=== PATIENT | female | born 1965 | race Caucasian/White ===

== ENCOUNTER 2020-05-15 15:25 | Outpatient (CLI) | payer OTHER, SELFPAY ==
--- NOTE | ~2020-05-15 | MR_ITS ---
EXAMINATION: MR pituitary wo/w con DATE: 05/15/2020 16:45 INDICATION: Benign neoplasm of pituitary gland. TECHNIQUE: Magnetic resonance imaging (MRI) of the brain and brainstem was performed without and with 18 mL MultiHance intravenous contrast. Whole-brain sequences included sagittal T1-weighted FSE, axia l diffusion-weighted FS EPI, axial T2*-weighted GRE, axial T2-weighted FLAIR Propeller, and axial T2- weighted Propeller. Small eyloz-zu-wxio sequences included sagittal and coronal T1-weighted FSE cente red at the pituitary. Postcontrast sequences included small trdbd-js-xnvm coronal T1-weighted FSE in a time course and sagittal T1-weighted FSE and whole-brain axial T1-weighted FSE. Apparent diffusion coefficient (ADC) maps were created. COMPARISON: Brain MRI 11/05/2018 FINDINGS: The pituitary is normal in size with height of 6 mm and concave superior margin. There is a 6 mm isoenhancing mass in the pituitary on the left. The infundibulum is at midline. There are scatt ered areas of nonspecific increased T2-weighted signal intensity in the cerebral white matter, which is within normal limits for the patient's age. There is no intracranial hemorrhage or acute ischemic infarct. The ventricles are normal in size. The paranasal sinuses are clear. The orbits are normal. T he mastoid air cells are normal. IMPRESSION: 1. Stable 6 mm pituitary mass, consistent with a microadenoma. Reviewed, dictated and finalized at location B.
[2020-05-15 16:05] LABS: Estimated Glomerular Filt Rate > 60
== END 2020-05-15 15:26 | disposition home or self-care (01) ==
LOC: ANHIMG 15:28
PROVIDERS: PCP Internal Medicine; Visit Provider Internal Medicine Endocrinology, Diabetes & Metabolism
DX: D35.2 Benign neoplasm of pituitary gland (principal)
CPT/HCPCS: 36415; 70553; A9577

== ENCOUNTER 2020-08-02 13:55 | Emergency (ER) | payer OTHER, SELFPAY ==
--- NOTE | 2020-08-02 13:59 | ED.URI ---
HPI - URI/Sore Throat General Chief Complaint: Upper Respiratory Infection Stated Complaint: SORE THROAT Time Seen by Provider: 08/02/20 14:04 Source: patient and RN notes reviewed Mode of arrival: ambulatory Limitations: no limitations History of Present Illness HPI Narrative: 55-year-old female presents with concern for sore throat that started yesterday. Reports a coworker tested positive for strep throat. She reports mild nasal congestion, drainage. Denies cough, fever, shortness of breath, chills, sweats. Denies body aches. Denies any mqcx-pqh-awtsflb medications for her symptoms. MD elicited complaint: sore throat Related Data Home Medications Medication Instructions Recorded Confirmed blood sugar diagnostic #10 each 08/27/19 03/01/20 lancets 28 gauge #25 each 08/27/19 03/01/20 Allergies Allergy/AdvReac Type Severity Reaction Status Date / Time metformin Allergy Unknown Vomiting Verified 11/30/19 11:40 Sulfa (Sulfonamide Allergy Unknown Hives Verified 08/27/19 09:41 Antibiotics) Review of Systems Review of Systems: Narrative: CONSTITUTIONAL: Denies malaise, chills, sweats, or fever. EYES: Denies visual changes, redness, or discharge. ENT: Reports rhinorrhea, congestion, sore throat. Denies sinus pain, otalgia CARDIOVASCULAR: Denies chest pain, palpitations, or edema. RESPIRATORY: Denies cough or dyspnea. GASTROINTESTINAL: Denies abdominal pain, nausea, vomiting, diarrhea SKIN: Denies rash or itching. MUSCULOSKELETAL: Denies myalgia. NEUROLOGIC: Denies headache. All systems reviewed & are unremarkable except as noted in HPI and below PMFSH Past Medical History Medical History (Updated 08/02/20 @ 14:18 by Adelina Guido NP) Anxiety Breast tumor Right @ age 12 Diarrhea GI disease H. 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 confucianist 2012 Hx of tonsillectomy Age 19 Family History Family History (Updated 08/27/19 @ 09:43 by Celena Woods CMA) Father Family history of alcoholism, Onset Age: 40 Mother Anemia Sibling Throat cancer Other Hypertension Social History Social History (Updated 08/27/19 @ 09:44 by Celena Woods, [facility]) Smoking packs per day: 1 Smoking cigarettes per day: 20.0 Smoking status: Current every day smoker Tobacco type: cigarettes Second hand tobacco smoke exposure: Yes Alcohol intake: never Substance use: never Comments At time of signature, agree with nursing past medical, surgical, social and family history. There is no relevant family history pertinent to the presenting complaint Exam Narrative: Exam Narrative: GENERAL: Well-appearing, well-nourished, and in no acute distress. HEAD: Normocephalic EYES: PERRLA, conjunctivae clear ENT: Nares clear, turbinates erythematous, clear discharge. Mucous membranes moist. TM pearly kelly with sharp light reflex bilaterally; no tragal tenderness. Oropharynx not erythematous without lesions. Tonsils not enlarged and without exudate, no drooling, no hoarseness, no trismus, uvula midline. NECK: Supple. No lymphadenopathy CHEST: Clear to auscultation, breath sounds equal. No wheezing, rhonchi, rales, or stridor. No respiratory distress, speaks in full sentences. HEART: Regular rate and rhythm. No murmur heard. SKIN: Warm, dry, no rash. NEURO: Alert and oriented x3. PSYCH: Normal mood and affect Course Course Emergency Course: Patient is aware of diagnosis, understands and agrees to treatment plan. Anticipatory guidance given. Patient agrees to follow-up as directed and is aware of reasons to seek care at the emergency department. Portions of this record may have been created with voice recognition software Vital Signs Vital signs: Vital Sig
[2020-08-02 14:01] VITALS: BP 153/66; PULSE 94; RESP 12; TEMP 36.1; O2SAT 98
== END 2020-08-02 14:24 | disposition home or self-care (01) ==
PROVIDERS: Emergency Provider Nurse Practitioner; PCP Internal Medicine
DX: J06.9 Acute upper respiratory infection, unspecified (principal); F17.210 Nicotine dependence, cigarettes, uncomplicated; Z85.828 Personal history of other malignant neoplasm of skin; E11.9 Type 2 diabetes mellitus without complications
CPT/HCPCS: 87081; 87880; 99213; G0463

== ENCOUNTER → 2020-12-05 09:03 | Outpatient (CLI) | payer OTHER, SELFPAY ==
[2020-12-05 11:24] LABS: Influenza Control Positive
[2020-12-05 23:33] LABS: SARS-CoV-2 RNA PCR Negative
== END ==
PROVIDERS: PCP Internal Medicine; Visit Provider Nurse Practitioner
DX: Z20.822 Contact with and (suspected) exposure to COVID-19 (principal); R50.9 Fever, unspecified
CPT/HCPCS: 87804; C9803; U0003; U0005

== ENCOUNTER 2021-06-14 12:30 | Outpatient (RCR) | payer OTHER, SELFPAY ==
[2021-06-14 12:38] VITALS: BMI 30.5
[2021-06-14 12:43] VITALS: BMI 30.5
== END 2021-08-21 15:36 | disposition home or self-care (01) ==
LOC: ANHDMC 12:30
PROVIDERS: PCP Internal Medicine; Visit Provider Nurse Practitioner
DX: E11.9 Type 2 diabetes mellitus without complications (principal); Z71.89 Other specified counseling; Z71.3 Dietary counseling and surveillance
CPT/HCPCS: 97802; G0108

== ENCOUNTER 2022-03-28 08:00 | Outpatient (CLI) | payer OTHER, SELFPAY ==
--- NOTE | ~2022-03-28 | MR_ITS ---
EXAMINATION: MR brain/brain stem wo/w con DATE: 03/28/2022 08:48 INDICATION: Pituitary adenoma. TECHNIQUE: Magnetic resonance imaging (MRI) of the brain and brainstem was performed without and with 18 mL MultiHance intravenous contrast. COMPARISON: Brain MRI 05/15/2020 FINDINGS: In the left side of the sella, there is a 7 x 5 mm mass that is isoenhancing to normal pitu itary. The infundibulum is at midline. There is no intracranial hemorrhage or acute ischemic infarct. There are scattered areas of nonspecific increased T2-weighted signal intensity in the cerebral whit e matter, which is within normal limits for the patient's age. The ventricles are normal in size. The re is mild mucosal thickening in the ethmoid sinuses. The mastoid air cells are normal. The orbits ar e normal. IMPRESSION: 1. Stable 7 mm pituitary mass, consistent with a microadenoma. Reviewed, dictated and finalized at location A.
== END 2022-03-28 08:01 | disposition home or self-care (01) ==
PROVIDERS: PCP Internal Medicine; Visit Provider Nurse Practitioner
DX: D35.2 Benign neoplasm of pituitary gland (principal)
CPT/HCPCS: 70553; A9577

== ENCOUNTER 2023-01-01 08:34 | Outpatient (CLI) | payer OTHER, SELFPAY ==
[2023-01-01 19:04] LABS: Hemoglobin A1C 7.3 % (<5.7)
[2023-01-01 20:06] LABS: Anion Gap 7 mmol/L (8-16); Blood Urea Nitrogen 15 mg/dL (7-17); Calcium 9.2 mg/dL (8.4-10.2); Carbon Dioxide 25 mmol/L (22-30); Chloride 107 mmol/L (98-107); Estimated Glomerular Filt Rate > 60; Glucose 154 mg/dL (65-110); Potassium 4.1 mmol/L (3.4-5.0); Sodium 139 mmol/L (137-145)
== END 2023-01-01 08:35 | disposition home or self-care (01) ==
LOC: ANHGOSHLAB 08:34
PROVIDERS: PCP Internal Medicine; Visit Provider Nurse Practitioner
DX: E11.9 Type 2 diabetes mellitus without complications (principal)
CPT/HCPCS: 36415; 80048; 83036

== ENCOUNTER 2023-01-08 10:05 | Outpatient (CLI) | payer OTHER, SELFPAY ==
[2023-01-08 18:59] LABS: Rheumatoid Factor < 8.6 IU/ML (<12)
[2023-01-08 19:38] LABS: Erythrocyte Sedimentation Rate 12 mm/hr (0-20)
[2023-01-11 10:42] LABS: ANA Cascade Screen Negative (Negative)
== END 2023-01-08 10:06 | disposition home or self-care (01) ==
LOC: ANHGOSHLAB 10:06
PROVIDERS: PCP Internal Medicine; Visit Provider Nurse Practitioner
DX: M25.50 Pain in unspecified joint (principal)
CPT/HCPCS: 36415; 84443; 85652; 86038; 86430

== ENCOUNTER 2023-04-14 08:52 | Outpatient (CLI) | payer OTHER, SELFPAY ==
[2023-04-14 12:41] LABS: Basophils Absolute Auto 0.1 K/mm3 (0.0-0.1); Basophils Percent Auto 1.2 % (0.2-1.2); Eosinophils Absolute Auto 0.4 K/mm3 (0-0.3); Eosinophils Percent Auto 3.8 % (0-4.4); Hematocrit 44.2 % (37.0-47.0); Hemoglobin 14.6 g/dL (12.0-15.0); Immature Granulocyte Absolute 0.03 K/mm3 (0.00-0.031); Immature Granulocyte Percent A 0.3 % (0-0.5); Lymphocytes Absolute Auto 3.84 K/mm3 (0.9-3.2); Lymphocytes Percent Auto 36.9 % (18.3-44.2); Mean Corpuscular Hemoglobin 31.3 pg (26-34); Mean Corpuscular Volume 94.8 fl (80-100); Mean Platelet Volume 11.2 fl (7.4-10.4); Monocytes Absolute Auto 0.6 K/mm3 (0.1-0.6); Monocytes Percent Auto 5.7 % (2.6-8.5); Neutrophils Absolute Auto 5.4 K/mm3 (1.3-6.7); Neutrophils Percent Auto 52.1 % (45.5-73.1); Platelet Count Result 274 k/mm3 (150-375); Red Blood Count 4.66 M/mm3 (4.2-5.4); Red Cell Distribution Width 12.8 % (11.5-14.5); White Blood Count 10.4 K/mm3 (4.5-10.0)
[2023-04-14 13:10] LABS: Hemoglobin A1C 7.7 % (<5.7)
[2023-04-14 13:18] LABS: Microalbumin Urine Random 23.7 mg/L (0-16.7)
[2023-04-14 13:26] LABS: Creatinine Urine 225.4 mg/dL; MALB Creatinine Ratio 10.5 mg/g (0-30)
[2023-04-16 18:36] LABS: Apolipoprotein B 102 mg/dL (<90)
== END 2023-04-14 08:53 | disposition home or self-care (01) ==
LOC: ANHGOSHLAB 08:53
PROVIDERS: PCP Internal Medicine; Visit Provider Internal Medicine
DX: E11.65 Type 2 diabetes mellitus with hyperglycemia (principal); E78.5 Hyperlipidemia, unspecified
CPT/HCPCS: 36415; 82043; 82172; 83036; 85025

== ENCOUNTER 2023-04-16 10:25 | Outpatient (CLI) | payer OTHER, SELFPAY ==
[2023-04-16 18:55] LABS: Free T4 Free Thyroxine 1.36 ng/mL (0.78-2.19)
[2023-04-19 05:59] LABS: Triiodothyronine T3 Free 3.4 pg/mL (2.3-4.2)
== END 2023-04-16 10:26 | disposition home or self-care (01) ==
LOC: ANHGOSHLAB 10:26
PROVIDERS: PCP Internal Medicine; Visit Provider Nurse Practitioner
DX: R53.83 Other fatigue (principal)
CPT/HCPCS: 36415; 84439; 84443; 84481

== ENCOUNTER 2023-10-25 17:31 | Emergency (ER) | payer OTHER, SELFPAY ==
[2023-10-25 17:42] VITALS: BP 129/99; PULSE 103; RESP 17; TEMP 36.6; O2SAT 98
--- NOTE | 2023-10-25 17:52 | ED.GENADULT ---
HPI - General Adult General Chief complaint: Upper Respiratory Infection Stated complaint: Chest congestion;Vertigo Source: patient, RN notes reviewed and old records reviewed Mode of arrival: ambulatory Limitations: no limitations History of Present Illness HPI narrative: 58-year-old female presents to [facility] with complaints productive cough, chest congestion for approximately 2 weeks. Patient taking uvtm-lid-udzkwuq Mucinex with no relief. Patient states that yesterday while driving grandson to school started having vertigo. Patient states vertigo has resolved but now has ear pressure, sinus congestion, sinus pain. MD complaint: Cough, congestion Onset (ago): week(s) (2) Related Data Allergies Allergy/AdvReac Type Severity Reaction Status Date / Time metformin Allergy Unknown Vomiting Verified 10/25/23 17:53 Sulfa (Sulfonamide Allergy Unknown Hives Verified 10/25/23 17:53 Antibiotics) amoxicillin [From Augmentin] Allergy Violently Verified 10/25/23 17:53 Ill clavulanic acid Allergy Violently Verified 10/25/23 17:53 [From Augmentin] Ill Review of Systems Constitutional: Constitutional: Reports no additional constitutional complaints, Denies body ache(s), Denies chills, Denies fatigue, Denies fever(s) and Reports headache(s) Eyes: Eyes: Reports no additional eye complaints and Denies blurry vision ENT: Reports system reviewed and no additional complaints, except as documented, Reports vertigo, Denies dizziness, Denies ear discharge, Reports otalgia, Denies facial pain, Denies headache(s), Reports nasal congestion, Reports nasal discharge, Reports sinus pain, Reports sinus pressure and Denies sore throat Cardiovascular: Cardiovascular: Reports no additional cardiovascular complaints, Denies chest pain, Denies chest pain at rest, Denies rapid heart rate and Denies dyspnea Respiratory: Respiratory: Reports no additional respiratory complaints, Reports chest congestion, Reports cough, Denies pain on inspiration, Denies pain with cough and Denies dyspnea Gastrointestinal: Gastrointestinal: Denies abdominal pain, Denies diarrhea, Denies nausea and Denies vomiting Integumentary/Breasts: Skin/Breast: Denies rash Neurologic: Reports system reviewed and no additional complaints, except as documented, Denies vertigo, Denies dizziness and Denies headache(s) Endocrine: Endocrine: Denies fatigue PMFSH Past Medical History Medical History Anxiety Benign neoplasm of pituitary gland Breast tumor Right @ age 12 Diarrhea GI disease H. pylori infection Hemorrhoids Kidney stones Leukocytosis Mass of left wrist Skin cancer Tennis elbow Type 2 diabetes mellitus Surgical History Surgical History History of surgical removal of squamous cell carcinoma of skin of left muslim 2013 Hx of tonsillectomy Age 19 Family History Family History Father Family history of alcoholism, Onset Age: 40 Mother Anemia Sibling Throat cancer Other Hypertension Social History Social History Social History: Caffeine-Coffee/Tea Smoking packs per day: 1 Smoking cigarettes per day: 20.0 Years smoked: 40 Smoking pack-years: 40.00 Smoking status: Current every day smoker Tobacco type: cigarettes Second hand tobacco smoke exposure: Yes Alcohol intake: never Substance use: never Lack of Transportation: No Lack of Food: Never True Current Housing: I Have Housing Concerned About Future Housing: No Difficulty Paying Gas/Electric Bills: No Difficulty Paying for Meds: No Currently Unemployed: No Education: Bachelor's Degree Difficulty w/ Childcare or Family Care: No Spiritual care concerns: No Comments At the time of my signature, I reviewed and ag
== END 2023-10-25 18:08 | disposition home or self-care (01) ==
PROVIDERS: Emergency Provider Registered Nurse; PCP Internal Medicine
DX: J40 Bronchitis, not specified as acute or chronic (principal); H65.02 Acute serous otitis media, left ear; Z20.822 Contact with and (suspected) exposure to COVID-19; F17.210 Nicotine dependence, cigarettes, uncomplicated; E11.9 Type 2 diabetes mellitus without complications; F41.9 Anxiety disorder, unspecified; Z85.828 Personal history of other malignant neoplasm of skin
CPT/HCPCS: 87426; 87804; 99213; G0463

== ENCOUNTER 2023-12-09 08:49 | Outpatient (CLI) | payer OTHER, SELFPAY ==
[2023-12-09 13:09] LABS: Basophils Absolute Auto 0.1 K/mm3 (0.0-0.1); Basophils Percent Auto 0.8 % (0.2-1.2); Eosinophils Absolute Auto 0.3 K/mm3 (0-0.3); Eosinophils Percent Auto 2.2 % (0-4.4); Hematocrit 44.9 % (37.0-47.0); Hemoglobin 14.5 g/dL (12.0-15.0); Immature Granulocyte Absolute 0.05 K/mm3 (0.00-0.031); Immature Granulocyte Percent A 0.4 % (0-0.5); Lymphocytes Absolute Auto 3.06 K/mm3 (0.9-3.2); Lymphocytes Percent Auto 23.2 % (18.3-44.2); Mean Corpuscular HGB Conc 32.3 g/dl (32-36); Mean Corpuscular Hemoglobin 31.4 pg (26-34); Mean Corpuscular Volume 97.2 fl (80-100); Mean Platelet Volume 11.3 fl (7.4-10.4); Monocytes Absolute Auto 0.7 K/mm3 (0.1-0.6); Monocytes Percent Auto 5.2 % (2.6-8.5); Neutrophils Percent Auto 68.2 % (45.5-73.1); Platelet Count Result 281 k/mm3 (150-375); Red Blood Count 4.62 M/mm3 (4.2-5.4); Red Cell Distribution Width 13.5 % (11.5-14.5); White Blood Count 13.2 K/mm3 (4.5-10.0)
[2023-12-09 13:17] LABS: Alanine Aminotransferase 22 U/L (6-35); Albumin Level 4.2 g/dL (3.5-5.1); Alkaline Phosphatase 108 U/L (38-126); Anion Gap 6 mmol/L (8-16); Aspartate Amino Transferase 38 U/L (14-36); Bilirubin,Total 0.7 mg/dL (0.2-1.3); Blood Urea Nitrogen 12 mg/dL (7-17); Calcium 9.3 mg/dL (8.4-10.2); Carbon Dioxide 28 mmol/L (22-30); Chloride 108 mmol/L (98-107); Cholesterol 182 mg/dL (0-200); Estimated Glomerular Filt Rate > 60; Glucose 166 mg/dL (65-110); HDL Direct 35 mg/dL; Potassium 3.8 mmol/L (3.4-5.0); Sodium 142 mmol/L (137-145); Triglycerides 143 mg/dL (<150)
[2023-12-09 13:28] LABS: LDL Cholesterol Direct 125 mg/dL
[2023-12-09 13:58] LABS: MALB Creatinine Ratio 110.7 mg/g (0-30)
== END 2023-12-09 08:50 | disposition home or self-care (01) ==
LOC: ANHGOSHLAB 08:50
PROVIDERS: PCP Internal Medicine; Visit Provider Clinical Nurse Specialist
DX: E11.65 Type 2 diabetes mellitus with hyperglycemia (principal); E78.5 Hyperlipidemia, unspecified
CPT/HCPCS: 36415; 80053; 80061; 82043; 83036; 85025

== ENCOUNTER 2024-11-15 08:03 | Outpatient (CLI) | payer OTHER, SELFPAY ==
--- OUTSIDE RECORDS SUMMARY | 2024-11-15 08:09 | XMS_ITS | Referral Summary ---
Author Organization [facility] [address] Address [address] [place] [address] Care Team Providers Care Field Talent Qualification Specialist Name Role Phone Alberto Reilly DO Primary Care Provider +1- [phone] Allergies Active Allergy Reactions Criticality Noted Date Comments Cortisone Anaphylaxis,Hives High 11/19/2018 Sulfa (Sulfonamide Antibiotics) Medications venlafaxine XR (EFFEXOR-XR) 37.5 mg 24 hr capsule 02/18/2022 Active simvastatin (ZOCOR) 10 mg tablet Take 10 mg by mouth daily 03/27/2022 Active Trulicity 0.75 mg/0.5 mL pen injector 02/18/2022 Active azithromycin (ZITHROMAX) 250 mg tablet Take 2 tabs (500 mg) by mouth today, than 1 tab (250 mg) daily for 4 days. 6 tablet 01/20/2023 Active benzonatate (TESSALON) 100 mg capsuleIndicati ons:Cough Take 1 capsule (100 mg total) by mouth 3 (three) times a day as needed for cough 21 capsule 01/20/2023 Active Active Problems Problem Noted Date Diagnosed Date Leukocytosis (leucocytosis) 11/19/201801/04 Abnormal findings on diagnostic imaging of breas t 08/30/2014 Social History Tobacco Use Types Packs/Day Years Used Date Smoking Tobacco: Every Day Cigarettes Tobacco Cessation:Ready to Q uit: Not Asked; Counseling Given: Not Answered Comments Unknown Sex and Gender Information Value Date Recorded Sex Assigned at Not on file 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 Gender Identity Not on file Sexual Orientation Not on file Last Filed Vital Signs Vital Sign Reading Time Taken Comments Blood Pressure 124/84 01/20/2023 2:30 PM CDT Pulse 97 01/20/2023 2:30 PM CDT Temperature 36.8 C (98.3 F) 01/20/2023 2:30 PM CDT Respiratory Rate 18 01/20/2023 2:30 PM CDT Oxygen Saturation 96% 01/20/2023 2:30 PM CDT Inhaled Oxygen Concentration - - Weight 90.7 kg (200 lb) 01/20/2023 2:30 PM CDT Height 170.2 cm (5' 7 ) 01/20/2023 2:30 PM CDT Body Mass Index 31.32 01/20/2023 2:30 PM CDT Plan of Treatment Not on file Insurance [employer] [facility] [employer] [facility] Care Teams Field Talent Qualification Specialist Relationship Specialty Start Date End Date Alberto Reilly DO PCP - General Internal Medicine 06/17/18
--- OUTSIDE RECORDS SUMMARY | 2024-11-15 08:09 | XMS_ITS | Clinical Summary ---
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 Gender Identity Not on file Sexual Orientation Not on file Obstetrics History Last Filed Vital Signs Vital Sign Reading [...] 01/20/2023 2:30 PM CDT Plan of Treatment Health Maintenance Due Date Last Done Comments Breast Cancer Screening-Mammogram 1964 Cervical Cancer Screening 1964 Colon Cancer Screening-Colonoscopy 1964 Depression Screening 1964 Hepatitis C Screening 1964 Pneumococcal vaccine <65 (1 of 2 - PCV) 1970 Hepatitis B Screening 1982 Regular Well Visit/Exam 18-64 1982 Zoster Vaccine (1 of 2) 2014 Covid-19 Vaccine (3 - season) 2024, 08/10/2021 Influenza Vaccine (#1) 2024 DTaP/Tdap/Td Vaccine (2 - Td or Tdap) 03/20/2032 Insurance [facility] Care Teams Pickling Operator Relationship Specialty Start Date End Date Alberto Reilly DO PCP - General Internal Medicine 06/17/18
[2024-11-15 12:59] LABS: Basophils Absolute Auto 0.1 K/mm3 (0.0-0.1); Basophils Percent Auto 1.1 % (0.2-1.2); Eosinophils Absolute Auto 0.4 K/mm3 (0-0.3); Hematocrit 47.2 % (37.0-47.0); Hemoglobin 15.2 g/dL (12.0-15.0); Immature Granulocyte Absolute 0.05 K/mm3 (0.00-0.031); Immature Granulocyte Percent A 0.4 % (0-0.5); Lymphocytes Absolute Auto 3.85 K/mm3 (0.9-3.2); Lymphocytes Percent Auto 32.7 % (18.3-44.2); Mean Corpuscular HGB Conc 32.2 g/dl (32-36); Mean Corpuscular Hemoglobin 31.4 pg (26-34); Mean Corpuscular Volume 97.5 fl (80-100); Mean Platelet Volume 11.5 fl (7.4-10.4); Monocytes Absolute Auto 0.7 K/mm3 (0.1-0.6); Monocytes Percent Auto 5.8 % (2.6-8.5); Neutrophils Absolute Auto 6.7 K/mm3 (1.3-6.7); Platelet Count Result 324 k/mm3 (150-375); Red Blood Count 4.84 M/mm3 (4.2-5.4); Red Cell Distribution Width 13.2 % (11.5-14.5); White Blood Count 11.8 K/mm3 (4.5-10.0)
[2024-11-15 15:37] LABS: Alanine Aminotransferase 23 U/L (6-35); Albumin Level 4.4 g/dL (3.5-5.1); Alkaline Phosphatase 131 U/L (38-126); Anion Gap 11 mmol/L (4-12); Aspartate Amino Transferase 32 U/L (14-36); Bilirubin,Total 0.5 mg/dL (0.2-1.3); Blood Urea Nitrogen 13 mg/dL (7-17); Carbon Dioxide 25 mmol/L (22-30); Chloride 105 mmol/L (98-107); Cholesterol 185 mg/dL (0-200); Estimated Glomerular Filt Rate > 60; Glucose 149 mg/dL (65-110); HDL Direct 40 mg/dL; Potassium 4.4 mmol/L (3.4-5.0); Sodium 141 mmol/L (137-145); Triglycerides 232 mg/dL (<150)
[2024-11-15 15:47] LABS: LDL Cholesterol Direct 104 mg/dL
[2024-11-15 15:58] LABS: Creatinine Urine 129.1 mg/dL; Vitamin D 25 Hydroxy 15.6 ng/mL
[2024-11-15 16:03] LABS: MALB Creatinine Ratio 29.3 mg/g (0-30); Microalbumin Urine Random 37.8 mg/L (0-16.7)
[2024-11-15 16:33] LABS: Hemoglobin A1C 7.7 % (<5.7)
== END 2024-11-15 08:04 | disposition home or self-care (01) ==
LOC: ANHGOSHLAB 08:04
PROVIDERS: PCP Internal Medicine; Visit Provider Nurse Practitioner
DX: E78.5 Hyperlipidemia, unspecified (principal); E11.65 Type 2 diabetes mellitus with hyperglycemia; E56.9 Vitamin deficiency, unspecified; E55.9 Vitamin D deficiency, unspecified
CPT/HCPCS: 36415; 80053; 80061; 82043; 82306; 83036; 85025

== ENCOUNTER 2025-01-07 08:31 | Outpatient (CLI) | payer OTHER, SELFPAY ==
--- NOTE | ~2025-01-07 | MR_ITS ---
EXAMINATION: MR pituitary wo/w con DATE: 01/07/2025 09:26 INDICATION: Benign neoplasm of the pituitary gland TECHNIQUE: Magnetic resonance imaging (MRI) of the brain and brainstem was performed without and with 18 mL ProHance intravenous contrast. Whole-brain sequences included sagittal T1-weighted FSE, axial diffusion-weighted FS EPI, axial T2*-weighted GRE, axial T2-weighted FLAIR Propeller, and axial T2-we ighted Propeller. Small tslse-eq-tirv sequences included sagittal and coronal T1-weighted FSE centere d at the pituitary. Postcontrast sequences included small rbret-yi-cbck coronal T1-weighted FSE in a time course and sagittal T1-weighted FSE and whole-brain axial T1-weighted FSE. Apparent diffusion c oefficient (ADC) maps were created. COMPARISON: 03/28/2022 FINDINGS: No significant interval change in a subtly hyperenhancing mass in the left side of the sella which me asures approximately 7 x 6 mm on coronal images there appears be slight inferior expansion of the madelin la with symmetric concave contour to the cephalad margin of the pituitary and midline pituitary stalk . No invasion of the cavernous sinus. There are no areas of restricted diffusion to suggest acute infarction. No intracranial hemorrhage, o ther abnormal intracranial mass lesion or other regions of abnormal brain enhancement. Slight interva l progression in a few scattered areas of nonspecific increased T2-weighted signal intensity in the c erebral white matter, predominantly involving the deep and periventricular white matter which remains within normal limits for age. There are no intraparenchymal signal abnormalities seen on the other p ulse sequences. The ventricles are symmetric and normal in size. There are no abnormal extra-axial fl uid collections. Flow voids are seen in the cerebral arteries on the T2-weighted sequences consistent with their expected patency. Mild mucosal thickening the paranasal sinuses. The orbits and mastoid a ir cells are normal. IMPRESSION: 1. No significant interval change in a 7 mm left pituitary mass consistent with a microadenoma. Reviewed, dictated and finalized at location A.
--- OUTSIDE RECORDS SUMMARY | 2025-01-07 08:37 | XMS_ITS | Clinical Summary ---
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
--- OUTSIDE RECORDS SUMMARY | 2025-01-07 08:37 | XMS_ITS | Referral Summary ---
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
--- OUTSIDE RECORDS SUMMARY | 2025-01-07 08:37 | XMS_ITS | Clinical Summary ---
Author Organization [facility] Address [address] [place] [address] Care Team Providers Care Business Reporter Name Role Phone Alberto Reilly Primary Care Provider Allergies Active Allergy Reactions Criticality Noted Date Comments Cortisone Anaphylaxis,Hives High 11/19/2018 Sulfa (Sulfonamide Antibiotics) Anaphylaxis,Hives High 11/19/2018 Medications JANUVIA 100 mg Tablet 3 10/01/2018 Active venlafaxine (EFFEXOR XR) 37.5 mg Extended Release 24 hour capsule TK 1 C PO QD WF 2 11/07/2018 Active Active Problems Problem Noted Date Diagnosed Date Leukocytosis (leucocytosis) 11/19/2018 Family History Medical History Relation Name Comments Cancer Brother 2 Tracheal Cancer Brother 2 Heart Disease Father Relation Name Status Comments Brother 1 Alive Brother 2 Father Mother Alive Social History Tobacco Use Types Packs/Day Years Used Date Smoking Tobacco: Every Day Cigarettes 1 44 Smokeless Tobacco: Never Alcohol Use Standard Drinks/Week Comments No 0 (1 standard drink = 0.6 oz pur e alcohol) Comments No Sex and Gender Information Value Date Recorded Sex Assigned at Not on file 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 Gender Identity Not on file Sexual Orientation Not on file Last Filed Vital Signs Vital Sign Reading Time Taken Comments Blood Pressure 117/81 04/13/2020 10:02 AM CDT Pulse 96 04/13/2020 10:02 AM CDT Temperature 36.6 C (97.9 F) 04/13/2020 10:02 AM CDT Respiratory Rate 18 11/26/2018 10:50 AM JUNIOR ANALYST Oxygen Saturation 97% 04/13/2020 10:02 AM CDT Inhaled Oxygen Concentration - - Weight 96 kg (211 lb 11.2 oz) 04/13/2020 10:02 A M CDT Height 170.2 cm (5' 7 ) 04/13/2020 10:02 AM CDT Body Mass Index 33.16 04/13/2020 10:02 AM CDT Plan of Treatment Health Maintenance Due Date Last Done Comments PNEUMOCOCCAL VACCINE 0-49 YE ARS (1 of 2 - PCV) 1970 DTAP/TDAP/TD VACCINES (1 - Tdap) 1983 PAP SMEAR 1985 CERVICAL CANCER SCREENING 1994 HPV/Cotest (30-65) 1994 PAP SMEAR 1994 BREAST CANCER SCREENING 2004 COLORECTAL SCREENING 2009 Colorectal Cancer Screening 2009 FIT-DNA Q 3 years 2009 FIT/FOBT Q 1 year 2009 Flex Sig/CT Colonography Q 5 years 2009 ZOSTER VACCINE (1 of 2) 2014 INFLUENZA VACCINE (#1) 2024 RSV VACCINE (60+ or ) (1 - 1-dose 75+ series) 2039 HEPATITIS B VACCINES Aged Out No long er eligible based on patient's age to complete this topic Insurance [facility] Care Teams Business Reporter Relationship Specialty Start Date End Date Alberto Reilly DO [address] [address] PCP - General Internal Medicine 11/16/18
== END 2025-01-07 08:32 | disposition home or self-care (01) ==
PROVIDERS: PCP Internal Medicine; Visit Provider Nurse Practitioner
DX: D35.2 Benign neoplasm of pituitary gland (principal)
CPT/HCPCS: 70553; A9579

== ENCOUNTER 2025-03-07 11:05 | Outpatient (CLI) | payer OTHER, SELFPAY ==
--- OUTSIDE RECORDS SUMMARY | 2025-03-07 11:40 | XMS_ITS | Referral Summary ---
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
--- OUTSIDE RECORDS SUMMARY | 2025-03-07 11:40 | XMS_ITS | Clinical Summary ---
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
--- OUTSIDE RECORDS SUMMARY | 2025-03-07 11:40 | XMS_ITS | Clinical Summary ---
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 Gender Identity Not on file Sexual Orientation Not on file Last Filed Vital Signs Vital Sign Reading Time Taken Comments Blood Pressure 117/81 04/13/2020 10:02 AM CDT Pulse 96 04/13/2020 10:02 AM CDT Temperature 36.6 C (97.9 F) 04/13/2020 10:02 AM CDT Respiratory Rate 18 11/26/2018 10:50 AM SEQUINS SPOOLER Oxygen Saturation 97% 04/13/2020 10:02 AM CDT Inhaled Oxygen Concentration - - Weight 96 kg (211 lb 11.2 oz) 04/13/2020 10:02 A M CDT Height 170.2 cm (5' 7) 04/13/2020 10:02 AM CDT Body Mass Index 33.16 04/13/2020 10:02 AM CDT Plan of Treatment Health Maintenance Due Date Last Done Comments DTAP/TDAP/TD VACCINES (1 - Tdap) 1983 HPV/Cotest (21-29) 1985 CERVICAL CANCER SCREENING 1994 HPV/Cotest (30-65) [...] patient's age to complete this topic Insurance Care Teams Application Processor Relationship Specialty Start Date End Date Alberto Reilly DO [address] [id number] PCP - General Internal Medicine 11/16/18
[2025-03-07 15:30] LABS: Alanine Aminotransferase 26 U/L (6-35); Albumin Level 4.5 g/dL (3.5-5.1); Alkaline Phosphatase 127 U/L (38-126); Anion Gap 10 mmol/L (4-12); Aspartate Amino Transferase 61 U/L (14-36); Bilirubin,Total 0.6 mg/dL (0.2-1.3); Blood Urea Nitrogen 16 mg/dL (7-17); Calcium 9.6 mg/dL (8.4-10.2); Carbon Dioxide 24 mmol/L (22-30); Chloride 105 mmol/L (98-107); Estimated Glomerular Filt Rate > 60; Glucose 229 mg/dL (65-110); Potassium 4.3 mmol/L (3.4-5.0); Sodium 139 mmol/L (137-145)
[2025-03-07 21:54] LABS: Hemoglobin A1C 7.8 % (<5.7)
== END 2025-03-07 11:06 | disposition home or self-care (01) ==
LOC: ANHGOSHLAB 11:05
PROVIDERS: PCP Internal Medicine; Visit Provider Nurse Practitioner
DX: E11.9 Type 2 diabetes mellitus without complications (principal)
CPT/HCPCS: 36415; 80053; 83036

== ENCOUNTER 2025-07-11 13:42 | Outpatient (CLI) | payer OTHER, SELFPAY ==
--- OUTSIDE RECORDS SUMMARY | 2025-07-11 14:32 | XMS_ITS | Clinical Summary ---
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
--- OUTSIDE RECORDS SUMMARY | 2025-07-11 14:32 | XMS_ITS | Clinical Summary ---
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 Care Teams Irrigation Installation Specialist Relationship Specialty Start Date End Date Alberto Reilly DO [address] [id number] PCP - General Internal Medicine 11/16/18
[2025-07-11 18:42] LABS: Alanine Aminotransferase 21 U/L (6-35); Albumin Level 4.1 g/dL (3.5-5.1); Alkaline Phosphatase 111 U/L (38-126); Anion Gap 6 mmol/L (4-12); Aspartate Amino Transferase 38 U/L (14-36); Bilirubin,Total 0.6 mg/dL (0.2-1.3); Blood Urea Nitrogen 11 mg/dL (7-17); Calcium 9.1 mg/dL (8.4-10.2); Carbon Dioxide 27 mmol/L (22-30); Chloride 104 mmol/L (98-107); Estimated Glomerular Filt Rate > 60; Glucose 181 mg/dL (65-110); Potassium 3.8 mmol/L (3.4-5.0); Sodium 137 mmol/L (137-145); Total Protein 7.2 g/dL (6.3-8.2)
[2025-07-11 18:58] LABS: Hemoglobin A1C 8.3 % (<5.7)
[2025-07-11 19:05] LABS: MALB Creatinine Ratio 16.6 mg/g (0-30)
== END 2025-07-11 13:43 | disposition home or self-care (01) ==
LOC: ANHGOSHLAB 13:43
PROVIDERS: PCP Nurse Practitioner; Visit Provider Nurse Practitioner
DX: E11.65 Type 2 diabetes mellitus with hyperglycemia (principal); R74.8 Abnormal levels of other serum enzymes
CPT/HCPCS: 36415; 80053; 82043; 83036

== ENCOUNTER 2025-07-18 03:30 | Day surgery (SDC) | payer OTHER, SELFPAY ==
[2025-07-12 10:45] VITALS: BMI 31.1
--- NOTE | 2025-07-18 07:12 | WPDANESEPPF ---
Anes - Initial Pre Proc Eval Procedure: Operation Date: 07/18/25 11:00 Proposed Procedures p Screening Colonoscopy - Jey Shoemaker MD Date/Time: 07/18/25 07:12 Surgeon: Jey Shoemaker MD Pre Op Diagnosis: Encounter for screening for malignant neoplasm of Patient Data Age: 60 Gender: F Height: 1.7 m Weight: 90 kg Allergies Allergy/AdvReac Type Severity Reaction Status Date / Time empagliflozin (From Allergy Intermediate Rash Verified 07/18/25 09:44 Jardiance) Sulfa (Sulfonamide Allergy Unknown Hives Verified 07/18/25 09:44 Antibiotics) amoxicillin (From Augmentin) Allergy Violently Verified 07/18/25 09:44 Ill clavulanic acid (From Allergy Violently Verified 07/18/25 09:44 Augmentin) Ill metformin AdvReac Unknown Vomiting Verified 07/18/25 09:44 Home Medications ?Medication ?Instructions ?Recorded ?Confirmed ?Type blood sugar diagnostic (FreeStyle #100 ea 06/25/21 07/15/25 Rx Lite Strips) blood-glucose meter (FreeStyle #1 ea 06/25/21 07/15/25 Rx Lite Meter kit) lancets (Microlet Lancet) #100 ea 05/20/22 07/15/25 Rx dulaglutide 1.5 mg/0.5 mL 1.5 mg (0.5 mL) subcut WEEKLY 90 05/13/25 07/18/25 Rx subcutaneous pen injector days #6.5 mL (Trulicity) venlafaxine 37.5 mg 37.5 mg PO DAILY #90 caps 06/10/25 07/18/25 Rx capsule,extended release 24 hr glimepiride 1 mg tablet 1 mg PO QAM #90 tabs 07/15/25 07/18/25 Rx Patient hx anesthesia problems: none Family hx anesthesia problems: none Results Review: All pre-operative results and documents have been reviewed as part of the pre-operative evaluation. [facility] Past Medical History Medical History Benign neoplasm of pituitary gland Breast tumor Right @ age 12 Kidney stones Skin cancer Hemorrhoids Tennis elbow GI disease Diarrhea H. pylori infection Anxiety Type 2 diabetes mellitus Leukocytosis Mass of left wrist Surgical History Surgical History History of surgical removal of squamous cell carcinoma of skin of left confucianism 2013 Hx of tonsillectomy Age 19 Family History Family History Father Family history of alcoholism, Onset Age: 40 Mother Anemia Sibling Throat cancer Other Hypertension Social History Social History Social History: Caffeine-Coffee/Tea Smoking packs per day: 1 Smoking cigarettes per day: 20.0 Years smoked: 40 Smoking pack-years: 40.00 Smoking status: Current every day smoker Tobacco type: cigarettes Second hand tobacco smoke exposure: Yes Alcohol intake: never Substance use: never Lack of Transportation: No Lack of Food: Never True Current Housing: I Have Housing Concerned About Future Housing: No Difficulty Paying Gas/Electric Bills: No Difficulty Paying for Meds: No Currently Unemployed: No Education: Bachelor's Degree Difficulty w/ Childcare or Family Care: No Living arrangements: with family Spiritual care concerns: No Anes - Eval Final PreProcedure Day of Procedure 07/18/25 07:12 Patient weight: obese Heart: regular rate and rhythm Lungs: clear to auscultation Airway: Mallampati scale class II Neurological: alert and oriented Last oral intake: >/= 8 hours ASA classification: III Emergent: no Anesthetic plan: proceed Anesthesia type and monitoring: general GIVS and standard monitoring Results Review: All pre-operative results and documents have been reviewed as part of the pre-operative evaluation. Informed Consent: The patient's anesthetic plan and its attendant risks and benefits were discussed with the patient/family/POA. Questions were solicited and answers provided to the satisfaction of the patient/family/POA.
[2025-07-18 09:46] VITALS: BP 125/78; PULSE 103; RESP 18; TEMP 36.1; O2SAT 97
[2025-07-18] MEDS: LACTATED RINGERS 1,000 ML 150 ML IV CONT (10:04)
--- NOTE | 2025-07-18 10:28 | PM.IMHP ---
H&P: HPI History of Present Illness Date/Time: 07/18/25 10:28 Chief Complaint: Family history of colon cancer Narrative: This patient has family history of colorectal cancer. her mother was diagnosed with colon cancer in her late 70s. Review of Systems Review of Systems: All systems reviewed & are unremarkable except as noted in HPI and below PMFSH Past Medical History Medical History Benign neoplasm of pituitary gland Breast tumor Right @ age 12 Kidney stones Skin cancer Hemorrhoids Tennis elbow GI disease Diarrhea H. pylori infection Anxiety Type 2 diabetes mellitus Leukocytosis Mass of left wrist Surgical History Surgical History History of surgical removal of squamous cell carcinoma of skin of left adventism 2013 Hx of tonsillectomy Age 19 Family History Family History Father Family history of alcoholism, Onset Age: 40 Mother Anemia Sibling Throat cancer Other Hypertension Social History Social History Social History: Caffeine-Coffee/Tea Smoking packs per day: 1 Smoking cigarettes per day: 20.0 Years smoked: 40 Smoking pack-years: 40.00 Smoking status: Current every day smoker Tobacco type: cigarettes Second hand tobacco smoke exposure: Yes Alcohol intake: never Substance use: never Lack of Transportation: No Lack of Food: Never True Current Housing: I Have Housing Concerned About Future Housing: No Difficulty Paying Gas/Electric Bills: No Difficulty Paying for Meds: No Currently Unemployed: No Education: Bachelor's Degree Difficulty w/ Childcare or Family Care: No Living arrangements: with family Spiritual care concerns: No Meds Home Medications and Allergies Home Medications ?Medication ?Instructions ?Recorded ?Confirmed ?Type blood sugar diagnostic (FreeStyle #100 ea 06/25/21 07/15/25 Rx Lite Strips) blood-glucose meter (FreeStyle #1 ea 06/25/21 07/15/25 Rx Lite Meter kit) lancets (Microlet Lancet) #100 ea 05/20/22 07/15/25 Rx dulaglutide 1.5 mg/0.5 mL 1.5 mg (0.5 mL) subcut WEEKLY 90 05/13/25 07/18/25 Rx subcutaneous pen injector days #6.5 mL (Trulicity) venlafaxine 37.5 mg 37.5 mg PO DAILY #90 caps 06/10/25 07/18/25 Rx capsule,extended release 24 hr glimepiride 1 mg tablet 1 mg PO QAM #90 tabs 07/15/25 07/18/25 Rx Allergies Allergy/AdvReac Type Severity Reaction Status Date / Time empagliflozin (From Allergy Intermediate Rash Verified 07/18/25 09:44 Jardiance) Sulfa (Sulfonamide Allergy Unknown Hives Verified 07/18/25 09:44 Antibiotics) amoxicillin (From Augmentin) Allergy Violently Verified 07/18/25 09:44 Ill clavulanic acid (From Allergy Violently Verified 07/18/25 09:44 Augmentin) Ill metformin AdvReac Unknown Vomiting Verified 07/18/25 09:44 Vital Signs Vital Signs - 24 hr 07/18/25 09:46 Temperature 96.9 F L Pulse Rate 103 H Respiratory Rate 18 Blood Pressure 125/78 Pulse Oximetry 97 Oxygen Delivery Room Air Exam Const: General: cooperative and healthy appearing Resp: Effort & Inspection: normal respiratory effort and able to speak in complete sentences Auscultation: clear to auscultation bilaterally Cardio: Rate: regular rate Rhythm: regular rhythm GI: Inspection: normal to inspection GI Palp: No No hepatosplenomegaly present Auscultation: normal bowel sounds Rectal Exam: deferred Skin: General skin exam: normal color Psych: Appearance: grossly normal Mental Status: mental status grossly normal Assessment and Plan Assessment and plan (1) Screening for colon cancer: Code(s): Z12.11 - Encounter for screening for malignant neoplasm of colon Status: Acute Assessment and Plan: The patient is deemed a good candidate for the procedure. Consent signed. Will proceed.
[2025-07-18 10:56] VITALS: BP 123/77; PULSE 91; RESP 18; O2SAT 99
--- NOTE | 2025-07-18 10:57 | S_PTH ---
PATIENT: Mary Barrientos LOC: [facility] U#:[id number] AGE/SX: 60/F ROOM: RE07/18/[address]: Jey Shoemaker MD : 1965 BED: DIS: 07/18/2025 SPEC #: [id number] RECD: 07/18/25 11:38 STATUS: LEA RETo #: [id number] JAYDEN: 07/18/25 10:[address]: Jey Shoemaker DEPT: [facility] Surgical RECD BY: Milly Branch ENTERED: 07/18/25 11:40 SP TYPE: Surgical OTHR DR: Kathie Wilburn, EMELI Tissues: A - Colon Polypectomy B - Colon Polypectomy C - Colon Polypectomy D - Colon Polypectomy Procedures: Hematoxylin and Eosin Stain Gross and Microscopic Level 4
[2025-07-18 11:06] VITALS: BP 125/77; PULSE 88; RESP 18; O2SAT 100
[2025-07-18 11:16] VITALS: BP 132/80; PULSE 79; RESP 18; O2SAT 97
== END 2025-07-18 11:29 | disposition home or self-care (01) ==
PROVIDERS: Referring Provider Nurse Practitioner; Visit Provider Internal Medicine Gastroenterology
PROC: 0DJD8ZZ Inspection of Lower Intestinal Tract, Via Natural or Artificial Opening Endoscopic (ICD-10-PCS; CPT 45378; principal; 2025-07-18 11:00)
DX: Z12.11 Encounter for screening for malignant neoplasm of colon (principal); D12.2 Benign neoplasm of ascending colon; D12.0 Benign neoplasm of cecum; D12.5 Benign neoplasm of sigmoid colon; K62.1 Rectal polyp; K64.4 Residual hemorrhoidal skin tags; K57.30 Diverticulosis of large intestine without perforation or abscess without bleeding; F41.9 Anxiety disorder, unspecified; E11.9 Type 2 diabetes mellitus without complications; D72.829 Elevated white blood cell count, unspecified; K92.9 Disease of digestive system, unspecified; F17.210 Nicotine dependence, cigarettes, uncomplicated; E66.9 Obesity, unspecified; Z68.30 Body mass index [BMI] 30.0-30.9, adult; Z79.85 Long-term (current) use of injectable non-insulin antidiabetic drugs; Z79.84 Long term (current) use of oral hypoglycemic drugs; Z98.890 Other specified postprocedural states; Z87.442 Personal history of urinary calculi; Z85.828 Personal history of other malignant neoplasm of skin; Z80.0 Family history of malignant neoplasm of digestive organs; Z80.1 Family history of malignant neoplasm of trachea, bronchus and lung
CPT/HCPCS: 45385; 82948; 88305; J2704; J7120

== ENCOUNTER 2025-10-05 11:50 | Outpatient (CLI) | payer OTHER, SELFPAY ==
--- OUTSIDE RECORDS SUMMARY | 2025-10-05 11:55 | XMS_ITS | Clinical Summary ---
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
--- OUTSIDE RECORDS SUMMARY | 2025-10-05 11:55 | XMS_ITS | Clinical Summary ---
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 Care Teams Social Insurance Analyst Relationship Specialty Start Date End Date Alberto Reilly DO PCP - General Internal Medicine 06/17/18
[2025-10-05 18:41] LABS: Hemoglobin A1C 7.1 % (<5.7)
[2025-10-05 19:08] LABS: Alanine Aminotransferase 21 U/L (6-35); Albumin Level 4.4 g/dL (3.5-5.1); Alkaline Phosphatase 106 U/L (38-126); Anion Gap 10 mmol/L (4-12); Aspartate Amino Transferase 59 U/L (14-36); Bilirubin,Total 0.7 mg/dL (0.2-1.3); Blood Urea Nitrogen 12 mg/dL (7-17); Calcium 9.4 mg/dL (8.4-10.2); Carbon Dioxide 25 mmol/L (22-30); Chloride 104 mmol/L (98-107); Estimated Glomerular Filt Rate > 60; Glucose 144 mg/dL (65-110); Potassium 4.1 mmol/L (3.4-5.0); Sodium 139 mmol/L (137-145); Total Protein 7.5 g/dL (6.3-8.2)
== END 2025-10-05 11:51 | disposition home or self-care (01) ==
LOC: ANHGOSHLAB 11:51
PROVIDERS: Visit Provider Nurse Practitioner
DX: E11.65 Type 2 diabetes mellitus with hyperglycemia (principal)
CPT/HCPCS: 36415; 80053; 83036